=== PATIENT | male | born 1935 | race Caucasian/White ===

== ENCOUNTER 2018-01-07 16:10 | Inpatient (IN) | payer MEDICARE ==
[~2018-01-07] VITALS: Ht 182.9 cm; Wt 80.3 kg
[~2018-01-07 16:10] MED LIST: ALLOPURINOL100 MG PO; AMIODARONE HCL200 MG PO; ASPIRIN81 MG PO; ATORVASTATIN CA40 MG PO; BUMETANIDE1 MG PO; BUMETANIDE2 MG PO; CARVEDILOL3.125 MG PO; CLINDAMYCIN HC150 MG PO; CYPROHEPTADINE H4 MG PO; FERROUS SULFAT325 MG PO; FOLIC ACID1 MG PO; FUROSEMIDE40 MG PO; GABAPENTIN300 MG PO; GLIMEPIRIDE2 MG PO; HYDRALAZINE HCL25 MG PO; HYDRALAZINE HCL50 MG PO; LEVAQUIN250 MG PO; LEVOTHYROXINE50 MCG PO; LORATADINE10 MG PO; PANTOPRAZOLE SO40 MG PO; POTASSIUM CHLO10 ME1 PO; POTASSIUM CHLO20 ME1 PO; PREDNISONE20 MG PO; TRAZODONE HCL50 MG PO; ULTRAM 50MG50 MG PO; ULTRAM50 MG PO; WARFARIN SODIU2.5 MG PO; WARFARIN SODIUM1 MG PO
[2018-01-07] MEDS ORDERED: ASPIRIN 81 MG CHEW TAB PO ONE (16:45)
[2018-01-07 16:47] LABS: BASOPHILS # (AUTO) 0.1 (0.0-0.1); BASOPHILS % 0.8 % (0.0-1.0); EOSINOPHILS # (AUTO) 0.2 (0.0-0.4); EOSINOPHILS % 2.8 % (0.0-6.0); HEMATOCRIT 30.9 % (38.2-49.6); HEMOGLOBIN 9.6 g/dL (14.0-18.0); LYMPHOCYTES # (AUTO) 1.2 (1.0-3.2); MEAN CORPUSCULAR HEMOGLOBIN 27.5 pg (28-32); MEAN CORPUSCULAR HGB CONC 31.1 g/dL (31-35); MEAN CORPUSCULAR VOLUME 88.5 fL (81-99); MONOCYTES % 12.8 % (4.4-11.3); NEUTROPHILS % 67.3 % (38.7-80.0); PLATELET COUNT 252 x10e3/uL (140-360); RED BLOOD COUNT 3.49 x10e6/uL (4.3-5.7); RED CELL DISTRIBUTION WIDTH 16.6 % (11.7-14.4)
[2018-01-07 16:53] LABS: CLARITY,URINE CLEAR (CLEAR); COLOR,URINE YELLOW (YELLOW); LEUKOCYTE ESTERASE ,URINE NEGATIVE (NEGATIVE); NITRITE,URINE NEGATIVE (NEGATIVE); PROTEIN,URINE DIPSTICK NEGATIVE (NEGATIVE)
[2018-01-07 16:54] LABS: BILIRUBIN,URINE NEGATIVE (NEGATIVE); KETONES,URINE NEGATIVE (NEGATIVE); URINE UROBILINOGEN 0.2 mg/dL (0.2 - 1)
[2018-01-07 16:55] LABS: INR 3.07; PROTHROMBIN TIME 29.8 seconds (11.9-14.5)
[2018-01-07 16:56] LABS: PARTIAL THROMBOPLASTIN TIME 47.4 seconds (23.8-35.5)
[2018-01-07 17:00] LABS: EPITHELIAL CELLS,URINE RARE /LPF
[2018-01-07 17:01] LABS: RBC,URINE 0-5 /HPF (0-5); WBC,URINE (MAN) 0-5 /HPF (0-5)
[2018-01-07 17:02] LABS: ALBUMIN 2.8 g/dL (3.5-5.0); ALBUMIN/GLOBULIN RATIO 0.7 (0.8-2.0); ANION GAP 15.4 mmol/L (8-16); CALCIUM 8.5 mg/dL (8.4-10.2); CREATININE, SERUM 3.04 mg/dL (0.72-1.25); MAGNESIUM 2.1 MG/DL (1.3-2.1); POTASSIUM 4.4 mmol/L (3.5-5.1)
[2018-01-07 17:08] LABS: CREATINE KINASE MB 2.9 ng/mL (0-5.0)
--- NOTE | 2018-01-07 17:33 | Diagnostic Imaging Report ---
ANKLE 3+ VIEWS LEFT - 3 views HISTORY: Pain. Fall. On Coumadin. COMPARISON: None available. FINDINGS: Bones: Chronic fracture deformity of the medial malleolus with fusion of the tibia and fibula and near complete loss of joint space within the tibia and talus. Chronic flattening of the talar dome. Soft tissues: The soft tissues appear unremarkable. Vascular calcifications IMPRESSION: Chronic severe fracture deformity of the left ankle with deformity of the talus. No acute abnormalities. Signed by: Dr. José Mackenzie M.D. on 01/07/2018 5:29 PM
--- NOTE | 2018-01-07 17:33 | Diagnostic Imaging Report ---
KNEE LEFT THREE VIEWS - 3 views HISTORY: Pain. COMPARISON: None available. FINDINGS: Bones: No acute displaced fracture. Osseous alignment is within normal limits. Joints: Severe joint space narrowing the medial compartment. Mild degenerative changes in the lateral and patellofemoral compartments. Small suprapatellar joint effusion. Soft tissues: The soft tissues appear unremarkable. Severe vascular calcifications. IMPRESSION: Severe joint space narrowing in the medial compartment of the left knee. Signed by: Dr. José Mackenzie M.D. on 01/07/2018 5:30 PM
--- NOTE | 2018-01-07 17:35 | Diagnostic Imaging Report ---
EXAMINATION: CHEST SINGLE (PORTABLE) INDICATION: Pain. Fall. COMPARISON: Chest x-ray 06/26/2016. CT chest 06/26/2016. FINDINGS: AP view TUBES and LINES: Median sternotomy wires and aortic valve replacement is unchanged. LUNGS: Lungs are not well inflated. There are bibasilar atelectasis. There is perihilar interstitial opacities, consistent with interstitial edema. PLEURA: Trace left pleural effusion. HEART AND MEDIASTINUM: Cardiac size is moderately enlarged and unchanged. BONES AND SOFT TISSUES: No acute osseous lesion. Soft tissues are unremarkable. UPPER ABDOMEN: No free air under the diaphragm. IMPRESSION: Moderate cardiomegaly with early interstitial edema with trace of pleural effusion. Signed by: Dr. José Mackenzie M.D. on 01/07/2018 5:31 PM
[2018-01-07] MEDS ORDERED: ONDANSETRON HCL INJ 2 MG/ML VIAL IV PRN (18:15)
[2018-01-07 19:15] VITALS: BP 143/64
[2018-01-07] MEDS ORDERED: DOCUSATE SODIUM 100 MG CAP PO PRN (19:15)
[2018-01-07] MEDS ORDERED: DEXTROSE 50% SYRINGE 50 ML IV PRN (19:15)
[2018-01-07] MEDS: SODIUM CHLORIDE 0.9% 1000ML 1,000 ML IV SCH (19:30)
[2018-01-07 20:00] VITALS: BP 143/64
[2018-01-07] MEDS: INSULIN LISPRO 100 UNIT/1 ML 3ML VIAL SQ SCH (21:00)
[2018-01-07 21:23] LABS: CREATININE,URINE RANDOM 34.47 mg/dL (63-166)
[2018-01-07 21:24] LABS: TOTAL PROTEIN, URINE < 6.8 mg/dL (1-14)
--- NOTE | 2018-01-07 21:31 | Diagnostic Imaging Report ---
History:Fall, patient on Coumadin Comparison studies:06/25/2016 Technique: Axial images were obtained from the skull base to the vertex. Coronal and sagittal images reconstructed from the axial data. Intravenous contrast: None Findings: Scalp/skull: No abnormalities. Extra-axial spaces: No masses. No fluid collections. Brain sulci: Moderately prominent. Ventricles: Moderate compensatory dilatation. No hydrocephalus. Parenchyma: No masses, acute hemorrhage or acute or chronic cortical vascular insults. A few scattered hypodensities in the supratentorial white matter are nonspecific but most compatible with chronic small vessel ischemic changes. Chronic lacunar infarcts in the deep left frontal periventricular white matter and left subinsular white matter are unchanged. Sellar/suprasellar region: Partial empty sella. Craniocervical junction: Patent foramen magnum. No Chiari one malformation. Incidental findings: Atherosclerotic calcifications in the carotid siphons . Impression: No acute abnormalities. Chronic findings: 1. Moderate generalized volume loss. 2. Mild supratentorial small vessel ischemic changes. 3. Chronic deep left frontal and left subinsular lacunar infarcts. Findings discussed with Dr. Carr on 5:33 PM on 01/07/2018. Preliminary report was given by Neuroradiology fellow Dr. Aranda at 5:33 PM on 01/07/2018. I have reviewed the images and agree with the findings in the preliminary report. Signed by: Dr. Pat Bedolla M.D. on 01/07/2018 9:27 PM
[2018-01-07] MEDS: ATORVASTATIN 40 MG TAB PO SCH (21:46)
[2018-01-07] MEDS: HYDRALAZINE HCL 25 MG TAB PO SCH (21:46)
[2018-01-07] MEDS: TRAZODONE HCL 50 MG TAB PO SCH (21:46)
[2018-01-07] MEDS: HYDROCODONE/APAP 5MG-325MG TAB PO PRN (21:47)
[2018-01-07] MEDS: FUROSEMIDE INJ 10 MG/ML 4 ML VIAL IV SCH (23:27)
[2018-01-08] VITALS (7 sets, daily range): BP systolic 115–129; BP diastolic 54–68
[2018-01-08] MEDS ORDERED: MIRALAX17 GM PO (01:02)
[2018-01-08] MEDS: FUROSEMIDE INJ 10 MG/ML 4 ML VIAL IV SCH ×3 (06:01→21:34)
[2018-01-08] MEDS: MORPHINE SULFATE 2 MG/ML SYR IV PRN ×2 (06:07→14:15)
--- NOTE | 2018-01-08 06:20 | Consultation ---
DATE OF CONSULTATION: January 07, 2018 HISTORY OF PRESENT ILLNESS: Mr. Jamie Simmons is a pleasant 82-year-old white gentleman, very poor historian. Renal has been consulted for management of acute kidney injury. Patient denies any history of chronic kidney disease. Has history of underlying GI bleed. He is on anticoagulation. Congestive heart failure, history of prior urinary retention, history of atrial fibrillation, history of hypothyroidism, history of atherosclerotic cardiovascular disease. Currently on oxygen, appears mildly short of breath. LABS: Showed sodium 136, potassium 4.4, bicarbonate 27, creatinine 3.04 with hemoglobin 9.6, white count 7.4. ALLERGIES: NO APPARENT DRUG ALLERGIES. CURRENT MEDICATIONS: Insulin, trazodone, amiodarone, docusate, levothyroxine, aspirin, hydralazine, atorvastatin, carvedilol, pantoprazole, and Tylenol p.r.n. FAMILY HISTORY: Please see primary care physician's note. REVIEW OF SYSTEMS: Positive for dyspnea on exertion, he claims. No chest pains. No nausea, vomiting. No headache. PAST HISTORY: Also significant for type 2 diabetes. He follows up with Dr. Silverio. He is on anticoagulation i.e. warfarin. I reviewed his record from his last admission. His serum creatinine baseline was 1.8. He is currently now dealing with possible ankle fracture. Please see orthopedic notes. PHYSICAL EXAMINATION: GENERAL: Awake, alert, lying supine. VITAL SIGNS: Blood pressure 143/64, pulse rate 60, afebrile, respiratory rate 17. HEENT: Head and neck: Cornea clear. Arcus senilis noted. Neck veins distended. LUNGS: Bibasilar rales. HEART: S1, S2 audible. ABDOMEN: Soft, nontender. LOWER EXTREMITIES: 1+ ankle edema. IMPRESSION AND PLAN: 1. Congestive heart failure. 2. Chaaz-dr-yfedktm kidney failure. 3. Prior urinary retention. 4. Possible benign prostatic hypertrophy. Plan on inserting Vivar catheter. Will start Lasix 40 IV q.8. Send urine for protein creatinine ratio. Kidney ultrasound. Urinalysis. Etiology of acute kidney injury unclear. Has definite chronic renal insufficiency, stage 3. Multiple other comorbidities. Please see orders. Job#: [id number]
[2018-01-08 06:56] LABS: BASOPHILS # (AUTO) 0.1 (0.0-0.1); BASOPHILS % 0.9 % (0.0-1.0); EOSINOPHILS # (AUTO) 0.3 (0.0-0.4); EOSINOPHILS % 5.1 % (0.0-6.0); HEMATOCRIT 27.9 % (38.2-49.6); HEMOGLOBIN 8.7 g/dL (14.0-18.0); MEAN CORPUSCULAR HEMOGLOBIN 27.6 pg (28-32); MEAN CORPUSCULAR HGB CONC 31.2 g/dL (31-35); MEAN CORPUSCULAR VOLUME 88.6 fL (81-99); MONOCYTES # (AUTO) 0.8 (0.2-0.8); MONOCYTES % 14.1 % (4.4-11.3); NEUTROPHILS # (AUTO) 3.5 (2.1-6.9); NEUTROPHILS % 61.5 % (38.7-80.0); PLATELET COUNT 219 x10e3/uL (140-360); RED BLOOD COUNT 3.15 x10e6/uL (4.3-5.7); RED CELL DISTRIBUTION WIDTH 16.5 % (11.7-14.4)
[2018-01-08 07:22] LABS: ALBUMIN 2.5 g/dL (3.5-5.0); ALBUMIN/GLOBULIN RATIO 0.8 (0.8-2.0); ANION GAP 11.8 mmol/L (8-16); CALCIUM 8.1 mg/dL (8.4-10.2); CREATININE, SERUM 2.74 mg/dL (0.72-1.25); PHOSPHORUS 4.1 MG/DL (2.3-4.7); POTASSIUM 3.8 mmol/L (3.5-5.1)
[2018-01-08] MEDS: INSULIN LISPRO 100 UNIT/1 ML 3ML VIAL SQ SCH ×4 (07:30→21:00)
[2018-01-08 07:34] LABS: INR 2.94; PROTHROMBIN TIME 28.8 seconds (11.9-14.5)
[2018-01-08 07:46] LABS: THYROID STIMULATING HORMONE 9.771 uIU/mL (0.350-4.940)
[2018-01-08] MEDS ORDERED: LEVOTHYROXINE SODIUM 50 MCG TAB PO SCH (09:00)
[2018-01-08] MEDS: PANTOPRAZOLE SOD 40 MG TABEC PO SCH (09:37)
[2018-01-08] MEDS: SODIUM CHLORIDE 0.9% 1000ML 1,000 ML IV SCH ×2 (09:37→21:34)
[2018-01-08] MEDS: AMIODARONE HCL 200 MG TAB PO SCH (09:38)
[2018-01-08] MEDS: HYDRALAZINE HCL 25 MG TAB PO SCH ×3 (09:38→21:00)
[2018-01-08] MEDS: ASPIRIN 81 MG CHEW TAB PO SCH (09:38)
[2018-01-08] MEDS: CARVEDILOL 3.125 MG TAB PO SCH ×2 (09:38→16:48)
--- NOTE | 2018-01-08 09:47 | History and Physical ---
PATIENT LOCATION: ER room 2. PRESENTING COMPLAINT: Fall episode with laceration of legs on both sides today. HISTORY OF PRESENT ILLNESS: [id number] male who was admitted from ER with complaints of pain and laceration of legs and ankle status post fall at home. Patient was brought to ER by EMS from home. Patient is hard of hearing. He tells that he tried to walk at home when his was taking some food and his left ankle which is deformed from arthritis gave in. Patient fell and has some bruises about his both legs causing bleeding. Patient was on Coumadin for chronic atrial fibrillation. He denied any chest pain, shortness of breath, palpitation, dizziness prior to the fall. Patient did not have any change in mental status or seizure episode along with this fall episode. Patient head CT was done at the ER, was negative as per report from the ER physician. Patient only complains of pain in his both lower extremities, more on left ankle status post fall. He is afebrile. He denies any nausea, vomiting, abdominal pain at the present time. Patient also denies any passage of blood with stool or urine. REVIEW OF SYSTEMS: CONSTITUTIONAL: No fever, chills, rigor. ENT: No nasal congestion. No visual disturbance. Patient is hard of hearing. 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 On right ear, he hears but he is impaired. CARDIOVASCULAR: No chest pain, shortness of breath, palpitation. PULMONARY: No cough, no hemoptysis. GI: No abdominal pain, nausea, vomiting, passage of blood with stool or black stool. : No dysuria, no hematuria. MUSCULOSKELETAL, SKIN, LYMPHORETICULAR: Pain in left ankle status post fall and small bruises over both legs with scanty bleeding. Patient also has abrasion sam in his right shoulder without any bleeding. NEUROLOGICAL: No headache, loss of consciousness, or seizure. HISTORY OF PAST MEDICAL ILLNESS: Diabetes mellitus type 2, hypertension, hyperlipidemia, CHF, CKD stage 3, ischemic cardiomyopathy. Patient has CAD, no CABG, he had open heart surgery for aortic valve replacement. HISTORY OF PAST SURGERY: Right carotid endarterectomy, aortic valve replacement. ALLERGIES: NO KNOWN MEDICATION ALLERGY. HOME MEDICATIONS: As per med reconciliation sheet. Patient was on warfarin at home as per report. SOCIAL HISTORY: Patient lives at home with his . HABITS: No smoking, drinking, or substance abuse history. PHYSICAL EXAMINATION: VITAL SIGNS: Today, BP 102/71, pulse of 58, temp 97.8, respiration 18, SpO2 98% at room air. GENERAL: Alert, in mild to moderate distress due to pain from laceration and abrasion. Verbalizing normally. HEENT: NC, AT. No pallor, no icterus. Pupils equally reacting. NECK: No JVD, no carotid bruit, no lymphadenopathy, no thyromegaly. HEART: S1 and S2 regular. No murmur. LUNGS: Air entry equal on both sides. Occasional fine crackles present about bases. No rhonchi. ABDOMEN: Soft, nontender. No palpable mass. Bowel sounds active in all quadrants. EXTREMITIES: Trace ankle edema bilaterally. No cyanosis. Dystrophic nails on both feet. SKIN: Laceration and abrasion sam present on both legs and left ankle. Also abrasion linda present about right shoulder. NEUROLOGICAL: Muscle strength symmetric on both sides. Plantar flexor bilaterally. Speech normal. Hearing impaired. LAB DATA: CBC: WBC 7.43, hemoglobin 9.6, hematocrit 30.9, platelets 252,000, MCV 88, RDW 16.6, neutrophils 67, lymphocytes 16. PT 29.8, INR 3.07, PTT 47.4. Chemistry panel: Sodium 136, potassium 4.4, chloride 98, CO2 27, BUN 97, creatinine 3.04, glucose 105. Lactic acid 7.0, calcium 8.5, magnesium 2.1. Total bilirubin 0.6, AST 31, ALT 33, alk phos 65. CK 87, CK-MB 2.90, troponin 0.015. Total protein 6.6, albumin 2.8, globulin 3.8. Urinalysis negative for protein, glucose, ketone, RBC 0 to 5, WBC 0 to 5. RADIOLOGICAL DATA: Left knee x-ray, 3 views, severe joint space narrowing of the medial compartment to the left knee, no fracture noted. Severe vascular calcification. Small subpatellar joint effusion. X-ray chest, single view, moderate cardiomegaly with early interstitial edema with trace pleural effusion. CT head and brain without contrast, preliminary report negative for any acute change as per ER physician's report. Official report is pending. EKG, atrial fibrillation with ventricular rate of 56 beats per minute. Left ankle x-ray, chronic severe fracture deformity of the lesser ankle and deformity of the talus, no acute abnormalities. ASSESSMENT AND PLAN: 1. Left knee and ankle pain status post fall. Patient has chronic osteoarthritis affecting left knee along with left ankle chronic fracture. There is no acute fracture as per report from the radiology. Patient was evaluated by orthopedist in the past, was not determined any candidate for surgery at that time. If needed, would consult orthopedist, keep patient on pain control, mobilization as per orthopedist. 2. Mechanical fall. Patient denies any loss of consciousness. His CT head is negative for any acute change. Patient on warfarin for chronic anticoagulation. He is status post aortic valve replacement and also he has chronic atrial fibrillation. His INR is therapeutic now. Can continue the same dose of Coumadin. Patient has scanty bleeding from the laceration site. Would monitor for bleeding. 3. Vvvmc-dt-utaloyi renal insufficiency. Patient was on diuretics likely at home. Would monitor renal function. Consultation with nephrology, Dr. Groves is requested from emergency room. Would follow his recommendation. Patient can be hydrated at low rate fluids for now as per nephrology recommendation. 4. Hypertension. Continue regular medication. 5. Hyperlipidemia. Continue regular medication. 6. Type 2 diabetes mellitus. Continue patient on his regular medication along with sliding scale insulin. 7. Chronic anemia. Would monitor hemoglobin and hematocrit while in hospital. 8. Chronic anticoagulation. Would monitor PT/INR daily while patient is in hospital. DISCHARGE PLAN: Depends upon patient's hospital course and recommendation by partner manager and orthopedist. Job#: [id number]
--- NOTE | 2018-01-08 10:26 | Consultation ---
DATE OF CONSULTATION: January 07, 2018 REASON FOR CONSULTATION: Fall, syncope, CAD, CHF, and PAD. CONSULTING PHYSICIAN: Dr. Stauffer HPI: This is an 82-year-old male that presented status post fall. According to the patient, he had a fall at home, was unable to get up that he had to drag himself on the floor to get to the phone. He sustained multiple skin tears. He had an x-ray done that showed chronic severe fracture and deformity of the left ankle. He has an extensive cardiac history of CAD and aortic valve replacement, chronic AFib and has been on Coumadin for anticoagulation. He denied any chest pain, any palpitation, any dizziness, any diaphoresis or headache. Troponin was negative. EKG with AFib, irregularly irregular. PAST MEDICAL HISTORY: Diastolic CHF, AFib, CAD, diabetes, hypothyroidism, hypertension, hyperlipidemia, diabetic neuropathy, CKD, bilateral lower extremity cellulitis, UTI, PAD, GI bleed, anemia, hard of hearing, and BPH. PAST SURGICAL HISTORY: CABG, aortic valve replacement, and right carotid endarterectomy. SOCIAL HISTORY: He quit smoking. He lives at home. FAMILY HISTORY: Positive for hypertension. MEDICATIONS: See med list. ALLERGIES: HE IS NOT ALLERGIC TO ANY MEDICATION. REVIEW OF THE SYSTEMS: Negative except those mentioned above. He is status post fall with multiple skin tears. PHYSICAL EXAMINATION: VITAL SIGNS: Temperature 97, heart rate 58, blood pressure 120/58, respiration 20, oxygen saturation 96% on room air. GENERAL: He is awake, alert, and oriented x3. HEENT: Mucous membranes moist. NECK: Supple. LUNGS: Bilaterally with decreased breath sounds. CARDIOVASCULAR: Irregularly irregular. ABDOMEN: Soft. NEUROLOGICAL: He is able to move all extremities. EXTREMITIES: Bilateral lower extremities with no edema. SKIN: He has multiple bruises and redness and skin tears all over his body. LABS: Sodium 136, potassium 4.4, chloride 98, CO2 27, BUN 97, creatinine 3.04, glucose 105. White blood cells 7.43, hemoglobin 9.6, hematocrit 30.9, platelet 252,000. PT 29.8, PTT 47.4, INR 2.94. IMPRESSION: 1. Status post fall. 2. Possible syncope. 3. Atrial fibrillation. 4. Coronary artery disease with aortic valve replacement. 5. Renal insufficiency. 6. Hypothyroidism. 7. Diabetes. 8. Hypertension. 9. Chronic severe fracture and deformity on the left ankle. ASSESSMENT AND PLAN 1. Will go ahead and get an echocardiogram to reassess the LV and the valve function. His heart rate is controlled and he has been anticoagulated. 2. INR is 2.94 today. 3. Ortho has been consulted for possible surgical intervention. We will hold Coumadin if there is going to be any surgical intervention and use Lovenox. Will go ahead and get bilateral carotid Doppler to rule out any occlusion, and continue his home medications. Further cardiac workup pending clinical course. Thank you for this consultation. Dictated by: Lynn Razo NP Job#: [id number]
--- NOTE | 2018-01-08 15:00 | Consultation ---
DATE OF CONSULTATION: January 08, 2018 CHIEF COMPLAINT: Left ankle pain. HISTORY OF PRESENT ILLNESS: This patient is an 82-year-old male who recently suffered a fall at home. He complains of new-onset left ankle pain. He is a poor historian and has difficulty giving a detailed account. He states that his left ankle gave out on him and that he fell. He states he was unable to get up and bear weight. He states he had to drag himself to the phone, and sustained some scrapes on his arms and legs. He reportedly had a fracture of the left ankle many years ago. He states he has had instability and buckling in the ankle ever since then. He states that he has seen orthopedics in the past, and he was told there was nothing that could be done. He is hard of hearing and has difficulty answering questions as a result. PAST MEDICAL HISTORY: See H and P. SOCIAL HISTORY: The patient states he quit smoking many years ago. He denies drinking. He lives at home with his . He states that he ambulates with assistance, and that he sometimes uses an orthotic, but even then his ankle buckle inside the orthotic. PHYSICAL EXAMINATION GENERAL: This is a medically frail appearing gentleman who is in no apparent distress. He is awake, alert and oriented appropriately. He is hard of hearing and thus has difficulty following and answering questions. EXTREMITIES: Gross inspection of his left ankle shows chronic varus deformity of the ankle. There is trace swelling. There are multiple scrapes and lacerations on the left lower extremity without bleeding. There is tenderness along the lateral aspect of the ankle. There is no tenderness on the medial aspect over the medial malleolus. He has diminished, but not particularly uncomfortable range of motion in the ankle. Pedal pulses faintly palpable. The foot is grossly sensate. I cannot check capillary refill because of the condition of his nails. IMAGING: X-rays of the left ankle taken yesterday show a chronic fracture deformity with varus angulation. 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 There are x-rays from November of 2015 and October of 2015, which show similar findings of the left ankle. 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 The findings were discussed with the patient. He has been told in the past that there is not anything that can be done surgical. He reportedly uses an orthotic to help with ambulation. He could potentially consider an ankle fusion if his health could be optimized. I am not entirely sure he would be a good candidate for this. This would not be something he would want to do here. In the periphery, he would need to go [facility] and [facility] a dedicated foot and ankle specialist. For now I just recommend pain control. He could potentially get up with therapy and weightbear as tolerated. I recommended the patient that he have his family bring his orthotic up to the hospital to use. Thank you for the consultation. DICTATED BY MITZY OLIVARES PA-C Job#: [id number] KIKI
[2018-01-08] MEDS: WARFARIN SOD 2 MG TAB PO SCH (16:48)
[2018-01-08] MEDS: ATORVASTATIN 40 MG TAB PO SCH (21:34)
[2018-01-08] MEDS: TRAZODONE HCL 50 MG TAB PO SCH (21:34)
[2018-01-09] VITALS (7 sets, daily range): BP systolic 118–134; BP diastolic 58–63
[2018-01-09] MEDS: FUROSEMIDE INJ 10 MG/ML 4 ML VIAL IV SCH ×3 (05:38→21:18)
[2018-01-09] MEDS: LEVOTHYROXINE SODIUM 75 MCG TAB PO SCH (05:38)
[2018-01-09 06:28] LABS: BASOPHILS # (AUTO) 0.1 (0.0-0.1); BASOPHILS % 0.8 % (0.0-1.0); EOSINOPHILS # (AUTO) 0.2 (0.0-0.4); EOSINOPHILS % 2.3 % (0.0-6.0); HEMATOCRIT 28.6 % (38.2-49.6); HEMOGLOBIN 8.6 g/dL (14.0-18.0); LYMPHOCYTES # (AUTO) 1.1 (1.0-3.2); LYMPHOCYTES % 15.9 % (18.0-39.1); MEAN CORPUSCULAR HEMOGLOBIN 26.8 pg (28-32); MEAN CORPUSCULAR HGB CONC 30.1 g/dL (31-35); MEAN CORPUSCULAR VOLUME 89.1 fL (81-99); MONOCYTES # (AUTO) 0.8 (0.2-0.8); MONOCYTES % 12.1 % (4.4-11.3); NEUTROPHILS # (AUTO) 4.6 (2.1-6.9); NEUTROPHILS % 68.6 % (38.7-80.0); PLATELET COUNT 228 x10e3/uL (140-360); RED BLOOD COUNT 3.21 x10e6/uL (4.3-5.7); RED CELL DISTRIBUTION WIDTH 16.5 % (11.7-14.4)
[2018-01-09 06:47] LABS: ANION GAP 12.1 mmol/L (8-16); CREATININE, SERUM 2.41 mg/dL (0.72-1.25); POTASSIUM 4.1 mmol/L (3.5-5.1)
[2018-01-09 07:16] LABS: FERRITIN 51.75 ng/mL (21.81-274.66)
[2018-01-09] MEDS: INSULIN LISPRO 100 UNIT/1 ML 3ML VIAL SQ SCH ×4 (07:30→21:00)
[2018-01-09] MEDS: PANTOPRAZOLE SOD 40 MG TABEC PO SCH (09:44)
[2018-01-09] MEDS: HYDRALAZINE HCL 25 MG TAB PO SCH ×3 (09:45→21:00)
[2018-01-09] MEDS: ASPIRIN 81 MG CHEW TAB PO SCH (09:45)
[2018-01-09] MEDS: AMIODARONE HCL 200 MG TAB PO SCH (09:45)
[2018-01-09] MEDS: CARVEDILOL 3.125 MG TAB PO SCH ×2 (09:46→17:14)
[2018-01-09 10:04] LABS: INR 2.69; PROTHROMBIN TIME 26.9 seconds (11.9-14.5)
--- NOTE | 2018-01-09 10:31 | Consultation ---
DATE OF CONSULTATION: January 09, 2018 PULMONARY CONSULTATION Patient of Dr. Manley, Dr. Danielson and Dr. Silverio. A charming but unfortunate 82-year-old gentleman admitted with increasing shortness of breath of 2 days duration according to the record. Apparently, he was a direct admission. He has a history of congestive heart failure, ischemic cardiomyopathy, aortic valve replacement, chronic kidney disease, chronic atrial fibrillation, hypothyroidism, diabetes, peripheral vascular disease. He is a nonsmoker. 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 Had carotid surgery, as well as aortic valve replacement. Been on Coumadin in the past. History of severe peripheral neuropathy and peripheral vascular disease. Lives with his . HOME MEDICATIONS: Include Bumex, Lasix, MiraLAX, amiodarone, aspirin, Lipitor, Coreg, Apresoline, Levoxyl, Protonix, trazodone, and warfarin. PHYSICAL EXAMINATION GENERAL: This is a frail white male somewhat a poor historian. VITALS: Temperature 96.5, pulse 67, respirations 24, blood pressure 123/58. He is on nasal oxygen. HEENT: Head: There is some temporal wasting. LUNGS: Bilateral rales, right greater than left. HEART: Irregular rhythm. ABDOMEN: Nontender. EXTREMITIES: There is arterial vascular insufficiency changes of the skin. Absence of hair. IMPRESSION 1. Severe congestive heart failure 2. Deformed ankles, especially the left with a history of remote fracture and nonunion. The patient does represent increased certain . Thank you for this kind referral. Job#: [id number] KIKI
--- NOTE | 2018-01-09 11:47 | Diagnostic Imaging Report ---
PROCEDURE: A single AP view of the chest. COMPARISON: Patients [facility], , CHEST SINGLE (PORTABLE), 01/07/2018, 16:57. INDICATIONS: CHF FINDINGS: Lines/tubes: None. Lungs: Bilateral pulmonary venous congestion and interstitial edema. Pleura: There is no pneumothorax. Interval increase in left pleural effusion. Development of small right pleural effusion. Heart and mediastinum: The cardiac silhouette remains moderately enlarged. Median sternotomy wires. Bones: No acute bony abnormality. IMPRESSION: 1. mild interval worsening of bilateral pulmonary congestion and interstitial edema. 2. Mild interval increase in volume of small left pleural effusion. New small right pleural effusion. Electronically approved by: Jose Shelby M.D. on 01/09/2018 at 11:50
[2018-01-09 11:48] LABS: ABG HCO3 27 mmol/L (23-28); ABG PCO2 54 mmHg (41-51); ABG PH 7.31 (7.31-7.41); ABG PO2 66 mmHg (80-105)
[2018-01-09] MEDS: HYDROCODONE/APAP 5MG-325MG TAB PO PRN (12:47)
[2018-01-09] MEDS: BUDESONIDE 0.5MG/2 ML NEB INH SCH ×2 (13:15→17:33)
[2018-01-09] MEDS: IPRATROPIUM BROMIDE 0.02% 2.5 ML NEB NEB SCH ×2 (13:15→19:30)
[2018-01-09] MEDS: WARFARIN SOD 2 MG TAB PO SCH (17:14)
--- NOTE | 2018-01-09 17:43 | Diagnostic Imaging Report ---
EXAM: Renal Ultrasound INDICATION: Acute kidney injury. COMPARISON: None TECHNIQUE: Transverse and longitudinal images of the kidneys and bladder were obtained. FINDINGS: Right Kidney: Length: 10.1 cm Appearance: Normal echogenicity. Collecting system: No hydronephrosis Stones: None Cyst/Mass: None Left Kidney: Length: 9.6 cm Appearance: Normal echogenicity. Collecting system: No hydronephrosis Stones: None Cyst/Mass: None Bladder: Decompressed which precludes evaluation. IMPRESSION: Normal renal ultrasound exam. Signed by: Dr. Jose Shelby M.D. on 01/09/2018 5:40 PM
[2018-01-09] MEDS: TRAZODONE HCL 50 MG TAB PO SCH (21:17)
[2018-01-09] MEDS: ATORVASTATIN 40 MG TAB PO SCH (21:17)
[2018-01-10] VITALS (7 sets, daily range): BP systolic 115–137; BP diastolic 57–70
[2018-01-10] MEDS: IPRATROPIUM BROMIDE 0.02% 2.5 ML NEB NEB SCH ×4 (02:00→19:00)
[2018-01-10] MEDS: FUROSEMIDE INJ 10 MG/ML 4 ML VIAL IV SCH ×3 (05:38→22:15)
[2018-01-10] MEDS: LEVOTHYROXINE SODIUM 75 MCG TAB PO SCH (05:38)
[2018-01-10 06:16] LABS: BASOPHILS % 0.3 % (0.0-1.0); EOSINOPHILS # (AUTO) 0.1 (0.0-0.4); EOSINOPHILS % 1.1 % (0.0-6.0); HEMOGLOBIN 9.1 g/dL (14.0-18.0); LYMPHOCYTES # (AUTO) 0.9 (1.0-3.2); LYMPHOCYTES % 12.8 % (18.0-39.1); MEAN CORPUSCULAR HEMOGLOBIN 27.5 pg (28-32); MEAN CORPUSCULAR HGB CONC 30.3 g/dL (31-35); MEAN CORPUSCULAR VOLUME 90.6 fL (81-99); MONOCYTES # (AUTO) 0.8 (0.2-0.8); MONOCYTES % 10.6 % (4.4-11.3); NEUTROPHILS # (AUTO) 5.5 (2.1-6.9); NEUTROPHILS % 74.9 % (38.7-80.0); PLATELET COUNT 235 x10e3/uL (140-360); RED BLOOD COUNT 3.31 x10e6/uL (4.3-5.7); RED CELL DISTRIBUTION WIDTH 16.8 % (11.7-14.4)
[2018-01-10 06:46] LABS: ALBUMIN 2.4 g/dL (3.5-5.0); ALBUMIN/GLOBULIN RATIO 0.7 (0.8-2.0); ANION GAP 12.2 mmol/L (8-16); CALCIUM 8.1 mg/dL (8.4-10.2); CREATININE, SERUM 2.52 mg/dL (0.72-1.25); POTASSIUM 4.2 mmol/L (3.5-5.1)
[2018-01-10] MEDS: BUDESONIDE 0.5MG/2 ML NEB INH SCH ×2 (07:00→19:00)
[2018-01-10] MEDS: INSULIN LISPRO 100 UNIT/1 ML 3ML VIAL SQ SCH ×4 (07:30→20:42)
[2018-01-10] MEDS: PANTOPRAZOLE SOD 40 MG TABEC PO SCH (09:14)
[2018-01-10] MEDS: HYDRALAZINE HCL 25 MG TAB PO SCH ×3 (09:15→20:42)
[2018-01-10] MEDS: CARVEDILOL 3.125 MG TAB PO SCH ×2 (09:15→17:17)
[2018-01-10] MEDS: ASPIRIN 81 MG CHEW TAB PO SCH (09:15)
[2018-01-10] MEDS: AMIODARONE HCL 200 MG TAB PO SCH (09:15)
[2018-01-10] MEDS: MUPIROCIN 2% OINT 22 GM TUBE TOP SCH (12:24)
[2018-01-10] MEDS: WARFARIN SOD 2 MG TAB PO SCH (17:18)
[2018-01-10] MEDS: IRON SUCROSE 100 MG in SODIUM CHLORIDE 0.9% 100 ML 100 ML IV SCH (18:07)
[2018-01-10] MEDS: TRAZODONE HCL 50 MG TAB PO SCH (20:42)
[2018-01-10] MEDS: ATORVASTATIN 40 MG TAB PO SCH (20:43)
[2018-01-11] VITALS (7 sets, daily range): BP systolic 121–143; BP diastolic 52–66
[2018-01-11] MEDS: FUROSEMIDE INJ 10 MG/ML 4 ML VIAL IV SCH ×3 (05:09→21:38)
[2018-01-11] MEDS: LEVOTHYROXINE SODIUM 75 MCG TAB PO SCH (05:10)
[2018-01-11 06:35] LABS: ANION GAP 12.9 mmol/L (8-16); CALCIUM 8.2 mg/dL (8.4-10.2); CREATININE, SERUM 2.39 mg/dL (0.72-1.25); POTASSIUM 3.9 mmol/L (3.5-5.1)
[2018-01-11] MEDS: IPRATROPIUM BROMIDE 0.02% 2.5 ML NEB NEB SCH ×4 (07:00→19:53)
[2018-01-11] MEDS: BUDESONIDE 0.5MG/2 ML NEB INH SCH ×2 (07:00→19:53)
[2018-01-11] MEDS: INSULIN LISPRO 100 UNIT/1 ML 3ML VIAL SQ SCH ×4 (07:30→21:00)
[2018-01-11] MEDS: PANTOPRAZOLE SOD 40 MG TABEC PO SCH (07:57)
[2018-01-11] MEDS: HYDRALAZINE HCL 25 MG TAB PO SCH ×3 (09:00→21:38)
[2018-01-11] MEDS: AMIODARONE HCL 200 MG TAB PO SCH (09:10)
[2018-01-11] MEDS: MUPIROCIN 2% OINT 22 GM TUBE TOP SCH (09:10)
[2018-01-11] MEDS: ASPIRIN 81 MG CHEW TAB PO SCH (09:10)
[2018-01-11] MEDS: CARVEDILOL 3.125 MG TAB PO SCH ×2 (09:10→17:52)
[2018-01-11] MEDS: IRON SUCROSE 100 MG in SODIUM CHLORIDE 0.9% 100 ML 100 ML IV SCH (18:24)
[2018-01-11] MEDS: ACETAMINOPHEN 325 MG TAB PO PRN (18:24)
[2018-01-11] MEDS: TRAZODONE HCL 50 MG TAB PO SCH (21:38)
[2018-01-11] MEDS: ATORVASTATIN 40 MG TAB PO SCH (21:38)
[2018-01-12] VITALS (7 sets, daily range): BP systolic 125–154; BP diastolic 59–74
[2018-01-12] MEDS: ACETAMINOPHEN 325 MG TAB PO PRN
[2018-01-12] MEDS: IPRATROPIUM BROMIDE 0.02% 2.5 ML NEB NEB SCH ×4 (02:22→19:35)
[2018-01-12] MEDS: HYDROCODONE/APAP 5MG-325MG TAB PO PRN (02:40)
[2018-01-12] MEDS: LEVOTHYROXINE SODIUM 75 MCG TAB PO SCH (05:36)
[2018-01-12] MEDS: FUROSEMIDE INJ 10 MG/ML 4 ML VIAL IV SCH ×3 (05:36→21:58)
[2018-01-12 06:22] LABS: BASOPHILS % 0.3 % (0.0-1.0); EOSINOPHILS # (AUTO) 0.1 (0.0-0.4); EOSINOPHILS % 1.1 % (0.0-6.0); HEMATOCRIT 28.7 % (38.2-49.6); HEMOGLOBIN 8.7 g/dL (14.0-18.0); LYMPHOCYTES # (AUTO) 1.1 (1.0-3.2); LYMPHOCYTES % 11.8 % (18.0-39.1); MEAN CORPUSCULAR HEMOGLOBIN 26.9 pg (28-32); MEAN CORPUSCULAR HGB CONC 30.3 g/dL (31-35); MEAN CORPUSCULAR VOLUME 88.6 fL (81-99); MONOCYTES # (AUTO) 0.9 (0.2-0.8); NEUTROPHILS # (AUTO) 6.8 (2.1-6.9); NEUTROPHILS % 76.2 % (38.7-80.0); PLATELET COUNT 234 x10e3/uL (140-360); RED BLOOD COUNT 3.24 x10e6/uL (4.3-5.7); RED CELL DISTRIBUTION WIDTH 16.5 % (11.7-14.4)
[2018-01-12 06:38] LABS: INR 3.09; PROTHROMBIN TIME 29.9 seconds (11.9-14.5)
[2018-01-12 06:55] LABS: ALBUMIN 2.4 g/dL (3.5-5.0); ALBUMIN/GLOBULIN RATIO 0.7 (0.8-2.0); CALCIUM 8.3 mg/dL (8.4-10.2); CREATININE, SERUM 2.28 mg/dL (0.72-1.25)
[2018-01-12] MEDS: INSULIN LISPRO 100 UNIT/1 ML 3ML VIAL SQ SCH ×4 (07:30→21:00)
[2018-01-12] MEDS: BUDESONIDE 0.5MG/2 ML NEB INH SCH ×2 (07:35→19:35)
[2018-01-12] MEDS: PANTOPRAZOLE SOD 40 MG TABEC PO SCH (07:45)
[2018-01-12] MEDS: HYDRALAZINE HCL 25 MG TAB PO SCH ×3 (09:00→21:00)
[2018-01-12] MEDS: ASPIRIN 81 MG CHEW TAB PO SCH (09:00)
[2018-01-12] MEDS: CARVEDILOL 3.125 MG TAB PO SCH ×2 (09:28→17:32)
[2018-01-12] MEDS: AMIODARONE HCL 200 MG TAB PO SCH (09:28)
[2018-01-12] MEDS: MUPIROCIN 2% OINT 22 GM TUBE TOP SCH (09:28)
--- NOTE | 2018-01-12 10:13 | Diagnostic Imaging Report ---
PROCEDURE:CHEST 2 VIEWS TECHNIQUE:PA and lateral chest INDICATION:Congestive heart failure COMPARISON:Patients [facility], DX, CHEST SINGLE (PORTABLE), 01/09/2018, 11:28. FINDINGS: See conclusion. CONCLUSION: 1. Stable small pleural effusions. 2. Low lung volumes with stable pulmonary edema and bibasilar atelectasis. 3. Stable cardiomegaly with postoperative sequela of sternotomy and aortic valve replacement. 4. Intact skeleton. Dictated by: Tavo Mercado M.D. on 01/12/2018 at 10:17 Electronically approved by: Tavo Mercado M.D. on 01/12/2018 at 10:17
[2018-01-12] MEDS: IRON SUCROSE 100 MG in SODIUM CHLORIDE 0.9% 100 ML 100 ML IV SCH (18:07)
[2018-01-12] MEDS: TRAZODONE HCL 50 MG TAB PO SCH (21:00)
[2018-01-12] MEDS: ATORVASTATIN 40 MG TAB PO SCH (21:00)
[2018-01-13] VITALS: BP 136/66
[2018-01-13] MEDS: IPRATROPIUM BROMIDE 0.02% 2.5 ML NEB NEB SCH ×4 (01:02→19:20)
[2018-01-13 04:00] VITALS: BP 137/68
[2018-01-13] MEDS: FUROSEMIDE INJ 10 MG/ML 4 ML VIAL IV SCH ×2 (05:36→13:36)
[2018-01-13] MEDS: LEVOTHYROXINE SODIUM 75 MCG TAB PO SCH (05:37)
[2018-01-13 06:10] LABS: INR 2.54; PROTHROMBIN TIME 25.7 seconds (11.9-14.5)
[2018-01-13 06:26] LABS: ANION GAP 12.4 mmol/L (8-16); CALCIUM 8.6 mg/dL (8.4-10.2); CREATININE, SERUM 2.46 mg/dL (0.72-1.25); POTASSIUM 4.4 mmol/L (3.5-5.1)
[2018-01-13] MEDS: BUDESONIDE 0.5MG/2 ML NEB INH SCH ×2 (07:25→19:20)
[2018-01-13] MEDS: INSULIN LISPRO 100 UNIT/1 ML 3ML VIAL SQ SCH ×4 (07:30→21:00)
[2018-01-13 08:18] VITALS: BP 122/68
[2018-01-13] MEDS: PANTOPRAZOLE SOD 40 MG TABEC PO SCH (09:20)
[2018-01-13] MEDS: HYDRALAZINE HCL 25 MG TAB PO SCH ×3 (10:07→21:00)
[2018-01-13] MEDS: AMIODARONE HCL 200 MG TAB PO SCH (10:07)
[2018-01-13] MEDS: MUPIROCIN 2% OINT 22 GM TUBE TOP SCH (10:08)
[2018-01-13] MEDS: CARVEDILOL 3.125 MG TAB PO SCH ×2 (10:08→16:20)
[2018-01-13 12:03] VITALS: BP 129/70
[2018-01-13] MEDS: HYDROCODONE/APAP 5MG-325MG TAB PO PRN (16:00)
[2018-01-13] MEDS: WARFARIN SOD 1 MG TAB PO SCH (16:21)
[2018-01-13 16:24] VITALS: BP 121/65
[2018-01-13] MEDS: ACETAMINOPHEN 325 MG TAB PO PRN ×2 (17:20→21:19)
[2018-01-13] MEDS: FUROSEMIDE 40 MG TAB PO SCH (18:52)
[2018-01-13 20:00] VITALS: BP 151/60
[2018-01-13] MEDS: ATORVASTATIN 40 MG TAB PO SCH (21:00)
[2018-01-13] MEDS: TRAZODONE HCL 50 MG TAB PO SCH (21:00)
--- NOTE | 2018-01-13 23:34 | Diagnostic Imaging Report ---
CHEST SINGLE (PORTABLE), 01/13/2018 10:45 PM Technique: CHEST SINGLE (PORTABLE) Comparison: 01/12/2018 Clinical history: Shortness of breath Findings: See Impression Impression: 1. Stable enlarged cardiomediastinal silhouette status post sternotomy and transcatheter aortic valve implantation. 2. Persistent diffuse opacities, likely a combination of edema, bibasilar atelectasis and pleural effusions. Signed by: Dr Nayla Hobson MD on 01/13/2018 11:31 PM
[2018-01-14] VITALS (78 sets, daily range): BP systolic 93–137; BP diastolic 50–100
[2018-01-14] MEDS: IPRATROPIUM BROMIDE 0.02% 2.5 ML NEB NEB SCH ×4 (01:05→18:52)
[2018-01-14 02:10] LABS: ABG HCO3 28 mmol/L (23-28); ABG PCO2 60 mmHg (41-51); ABG PH 7.28 (7.31-7.41); ABG PO2 69 mmHg (80-105)
[2018-01-14 06:17] LABS: INR 2.33
[2018-01-14 06:24] LABS: BASOPHILS % 0.3 % (0.0-1.0); EOSINOPHILS # (AUTO) 0.1 (0.0-0.4); EOSINOPHILS % 1.1 % (0.0-6.0); HEMATOCRIT 32.3 % (38.2-49.6); HEMOGLOBIN 9.3 g/dL (14.0-18.0); LYMPHOCYTES # (AUTO) 0.7 (1.0-3.2); LYMPHOCYTES % 8.2 % (18.0-39.1); MEAN CORPUSCULAR HEMOGLOBIN 27.3 pg (28-32); MEAN CORPUSCULAR HGB CONC 28.8 g/dL (31-35); MEAN CORPUSCULAR VOLUME 94.7 fL (81-99); MONOCYTES # (AUTO) 0.7 (0.2-0.8); MONOCYTES % 8.1 % (4.4-11.3); NEUTROPHILS # (AUTO) 7.3 (2.1-6.9); PLATELET COUNT 175 x10e3/uL (140-360); RED BLOOD COUNT 3.41 x10e6/uL (4.3-5.7); RED CELL DISTRIBUTION WIDTH 16.9 % (11.7-14.4)
[2018-01-14 06:28] LABS: ABG HCO3 28 mmol/L (23-28); ABG PCO2 49 mmHg (41-51); ABG PH 7.37 (7.31-7.41); ABG PO2 141 mmHg (80-105)
[2018-01-14 06:30] LABS: ALBUMIN 2.5 g/dL (3.5-5.0); ALBUMIN/GLOBULIN RATIO 0.7 (0.8-2.0); ANION GAP 14.6 mmol/L (8-16); CALCIUM 8.5 mg/dL (8.4-10.2); CREATININE, SERUM 2.58 mg/dL (0.72-1.25); POTASSIUM 4.6 mmol/L (3.5-5.1)
[2018-01-14] MEDS: INSULIN LISPRO 100 UNIT/1 ML 3ML VIAL SQ SCH ×4 (07:30→20:41)
[2018-01-14] MEDS: BUDESONIDE 0.5MG/2 ML NEB INH SCH ×2 (07:39→18:52)
[2018-01-14] MEDS: FUROSEMIDE 40 MG TAB PO SCH (08:04)
[2018-01-14] MEDS: LEVOTHYROXINE SODIUM 75 MCG TAB PO SCH (08:04)
[2018-01-14] MEDS: PANTOPRAZOLE SOD 40 MG TABEC PO SCH (08:04)
[2018-01-14] MEDS: HYDROCODONE/APAP 5MG-325MG TAB PO PRN (08:55)
[2018-01-14] MEDS: HYDRALAZINE HCL 25 MG TAB PO SCH ×3 (09:00→21:00)
[2018-01-14] MEDS: MUPIROCIN 2% OINT 22 GM TUBE TOP SCH (09:00)
[2018-01-14] MEDS: CARVEDILOL 3.125 MG TAB PO SCH ×2 (10:49→18:36)
[2018-01-14] MEDS: AMIODARONE HCL 200 MG TAB PO SCH (10:49)
[2018-01-14 11:36] LABS: ANISOCYTOSIS SLIGHT; HYPOCHROMASIA SLIGHT; PLATELET ESTIMATE ADEQUATE; PLATELET MORPHOLOGY COMMENT NORMAL; RBC MORPHOLOGY COMMENT NORMAL
[2018-01-14] MEDS ORDERED: FUROSEMIDE INJ 10 MG/ML 4 ML VIAL IV ONE (12:30)
--- NOTE | 2018-01-14 14:05 | Diagnostic Imaging Report ---
EXAM: US CHEST (INCL MEDIASTINUM) DATE: 01/14/2018 12:00 AM INDICATION: \S\pleural effusion COMPARISON: None FINDINGS: Small bilateral pleural effusions present. IMPRESSION: As above. Signed by: Dr. Israel Miller MD on 01/14/2018 2:01 PM
[2018-01-14] MEDS: WARFARIN SOD 1 MG TAB PO SCH (18:36)
[2018-01-14] MEDS: FUROSEMIDE INJ 10 MG/ML 2 ML VIAL IV SCH (18:36)
[2018-01-14] MEDS: TRAZODONE HCL 50 MG TAB PO SCH (21:00)
[2018-01-14] MEDS: ATORVASTATIN 40 MG TAB PO SCH (21:00)
[2018-01-15] VITALS (75 sets, daily range): BP systolic 73–126; BP diastolic 44–117
[2018-01-15] MEDS: HYDROCODONE/APAP 5MG-325MG TAB PO PRN (00:10)
[2018-01-15] MEDS: IPRATROPIUM BROMIDE 0.02% 2.5 ML NEB NEB SCH ×4 (02:30→19:25)
[2018-01-15] MEDS ORDERED: HYDROCODONE/APAP 5MG-325MG TAB PO PRN (03:15)
[2018-01-15] MEDS: LEVOTHYROXINE SODIUM 75 MCG TAB PO SCH (06:06)
[2018-01-15] MEDS: FUROSEMIDE INJ 10 MG/ML 2 ML VIAL IV SCH ×2 (06:13→18:05)
[2018-01-15 06:42] LABS: INR 2.3; PROTHROMBIN TIME 23.8 seconds (11.9-14.5)
[2018-01-15 06:56] LABS: ALBUMIN 2.5 g/dL (3.5-5.0); ALBUMIN/GLOBULIN RATIO 0.7 (0.8-2.0); ANION GAP 14.5 mmol/L (8-16); CALCIUM 8.2 mg/dL (8.4-10.2); CREATININE, SERUM 2.82 mg/dL (0.72-1.25); POTASSIUM 4.5 mmol/L (3.5-5.1)
[2018-01-15] MEDS: INSULIN LISPRO 100 UNIT/1 ML 3ML VIAL SQ SCH ×4 (07:30→21:00)
[2018-01-15] MEDS: BUDESONIDE 0.5MG/2 ML NEB INH SCH ×2 (07:42→19:25)
[2018-01-15] MEDS: MUPIROCIN 2% OINT 22 GM TUBE TOP SCH (10:06)
[2018-01-15] MEDS: AMIODARONE HCL 200 MG TAB PO SCH (10:06)
[2018-01-15] MEDS: CARVEDILOL 3.125 MG TAB PO SCH ×2 (10:06→17:00)
[2018-01-15] MEDS: HYDRALAZINE HCL 25 MG TAB PO SCH ×3 (10:06→21:12)
[2018-01-15] MEDS: PANTOPRAZOLE SOD 40 MG TABEC PO SCH (10:07)
--- NOTE | 2018-01-15 13:57 | Progress Note ---
DATE: January 15, 2018 NEPHROLOGY FOLLOWUP SUBJECTIVE: Remains on BiPAP. Chest x-ray is showing lot of infiltrates/fluid, net even for yesterday on 40 mg b.i.d. Lasix IV. PHYSICAL EXAMINATION GENERAL: Appears to be in some respiratory distress, on BiPAP. VITAL SIGNS: Pulse 64, blood pressure 126/63, temperature 98.2. NECK: Neck veins appear prominent as far as I can see. CHEST: Scattered crackles. EXTREMITIES: Trace edema. NEURO: Weak. LABORATORY DATA: Chemistries show increasing creatinine of 2.82, BUN of 82, and sodium 133. ASSESSMENT 1. Fluid overload. 2. Acute tubular necrosis, possibly from aspiration. 3. Satisfactory potassium and serum CO2. PLAN: Increase Lasix to 80 mg b.i.d.. A.m. chemistries. We will follow along. Job#: [id number] LINNETTE
[2018-01-15] MEDS: PIPERACILLIN/TAZO 2.25 GM 50 ML IV SCH ×2 (14:30→21:11)
[2018-01-15] MEDS: TRAMADOL HCL 50 MG TAB PO PRN ×2 (16:06→21:11)
[2018-01-15] MEDS: WARFARIN SOD 1 MG TAB PO SCH (18:05)
[2018-01-15] MEDS: TRAZODONE HCL 50 MG TAB PO SCH (21:11)
[2018-01-16] VITALS (55 sets, daily range): BP systolic 107–134; BP diastolic 55–86
[2018-01-16] MEDS: ACETAMINOPHEN 325 MG TAB PO PRN (00:37)
[2018-01-16] MEDS: IPRATROPIUM BROMIDE 0.02% 2.5 ML NEB NEB SCH ×4 (01:25→19:22)
[2018-01-16] MEDS: PIPERACILLIN/TAZO 2.25 GM 50 ML IV SCH ×3 (05:14→22:05)
[2018-01-16] MEDS: FUROSEMIDE INJ 10 MG/ML 2 ML VIAL IV SCH ×2 (05:14→17:05)
[2018-01-16] MEDS: LEVOTHYROXINE SODIUM 75 MCG TAB PO SCH (05:14)
[2018-01-16 06:03] LABS: BASOPHILS % 0.5 % (0.0-1.0); EOSINOPHILS # (AUTO) 0.2 (0.0-0.4); EOSINOPHILS % 2.2 % (0.0-6.0); HEMATOCRIT 28.4 % (38.2-49.6); HEMOGLOBIN 8.7 g/dL (14.0-18.0); LYMPHOCYTES # (AUTO) 1.1 (1.0-3.2); MEAN CORPUSCULAR HEMOGLOBIN 27.2 pg (28-32); MEAN CORPUSCULAR HGB CONC 30.6 g/dL (31-35); MEAN CORPUSCULAR VOLUME 88.8 fL (81-99); MONOCYTES # (AUTO) 1.1 (0.2-0.8); MONOCYTES % 12.6 % (4.4-11.3); NEUTROPHILS # (AUTO) 6.4 (2.1-6.9); NEUTROPHILS % 72.2 % (38.7-80.0); PLATELET COUNT 223 x10e3/uL (140-360); RED CELL DISTRIBUTION WIDTH 16.9 % (11.7-14.4)
[2018-01-16 06:36] LABS: ALBUMIN 2.4 g/dL (3.5-5.0); ALBUMIN/GLOBULIN RATIO 0.7 (0.8-2.0); CALCIUM 7.9 mg/dL (8.4-10.2); CREATININE, SERUM 2.84 mg/dL (0.72-1.25)
--- NOTE | 2018-01-16 06:38 | Diagnostic Imaging Report ---
CHEST SINGLE (PORTABLE), 01/16/2018 7:00 AM Technique: CHEST SINGLE (PORTABLE) Comparison: 01/13/2018 Clinical history: Shortness of breath Findings: See Impression Impression: 1. Stable enlarged cardiomediastinal silhouette status post sternotomy and transcatheter aortic valve implantation. 2. Persistent diffuse opacities, favor edema, bibasilar atelectasis and small left greater than right pleural effusions. Signed by: Dr Nayla Hobson MD on 01/16/2018 6:34 AM
[2018-01-16] MEDS: BUDESONIDE 0.5MG/2 ML NEB INH SCH ×2 (07:10→19:22)
[2018-01-16] MEDS: INSULIN LISPRO 100 UNIT/1 ML 3ML VIAL SQ SCH ×4 (07:30→20:10)
[2018-01-16] MEDS: PANTOPRAZOLE SOD 40 MG TABEC PO SCH (08:26)
[2018-01-16] MEDS: MUPIROCIN 2% OINT 22 GM TUBE TOP SCH (08:30)
[2018-01-16] MEDS: AMIODARONE HCL 200 MG TAB PO SCH (08:30)
[2018-01-16] MEDS: CARVEDILOL 3.125 MG TAB PO SCH ×2 (08:30→17:05)
[2018-01-16] MEDS: HYDRALAZINE HCL 25 MG TAB PO SCH ×3 (08:57→20:10)
[2018-01-16] MEDS: TRAMADOL HCL 50 MG TAB PO PRN (13:02)
[2018-01-16] MEDS ORDERED: WARFARIN SOD 1 MG TAB PO SCH (17:00)
[2018-01-16] MEDS: TRAZODONE HCL 50 MG TAB PO SCH (20:10)
[2018-01-17] VITALS (49 sets, daily range): BP systolic 106–133; BP diastolic 53–98
[2018-01-17] MEDS: TRAMADOL HCL 50 MG TAB PO PRN ×2 (00:43→08:40)
[2018-01-17] MEDS: IPRATROPIUM BROMIDE 0.02% 2.5 ML NEB NEB SCH ×4 (01:25→19:40)
[2018-01-17] MEDS: PIPERACILLIN/TAZO 2.25 GM 50 ML IV SCH ×3 (05:21→21:00)
[2018-01-17] MEDS: ACETAMINOPHEN 325 MG TAB PO PRN (05:21)
[2018-01-17] MEDS: LEVOTHYROXINE SODIUM 75 MCG TAB PO SCH (05:21)
[2018-01-17] MEDS: FUROSEMIDE INJ 10 MG/ML 2 ML VIAL IV SCH (05:21)
[2018-01-17 06:01] LABS: INR 1.9; PROTHROMBIN TIME 20.5 seconds (11.9-14.5)
[2018-01-17 06:12] LABS: ANION GAP 13.1 mmol/L (8-16); CALCIUM 8.1 mg/dL (8.4-10.2); CREATININE, SERUM 2.69 mg/dL (0.72-1.25); POTASSIUM 4.1 mmol/L (3.5-5.1)
[2018-01-17] MEDS: BUDESONIDE 0.5MG/2 ML NEB INH SCH ×2 (07:20→19:40)
[2018-01-17] MEDS: INSULIN LISPRO 100 UNIT/1 ML 3ML VIAL SQ SCH ×4 (07:30→20:41)
[2018-01-17] MEDS: PANTOPRAZOLE SOD 40 MG TABEC PO SCH (08:24)
[2018-01-17] MEDS: AMIODARONE HCL 200 MG TAB PO SCH (08:24)
[2018-01-17] MEDS: CARVEDILOL 3.125 MG TAB PO SCH ×2 (08:25→17:33)
[2018-01-17] MEDS: FOLIC ACID 1 MG TAB PO SCH (08:26)
[2018-01-17] MEDS ORDERED: BUMETANIDE 10 MG in SODIUM CHLORIDE 0.9% 100 ML 60 ML IV SCH (09:15)
[2018-01-17] MEDS: WARFARIN SOD 3 MG TAB PO SCH (17:33)
[2018-01-17] MEDS: FERROUS SULFATE 325 MG TAB PO SCH (17:33)
[2018-01-17] MEDS: HYDRALAZINE HCL 25 MG TAB PO SCH (17:33)
[2018-01-17] MEDS: TRAZODONE HCL 50 MG TAB PO SCH (20:41)
[2018-01-17] MEDS: BUMETANIDE 10 MG in SODIUM CHLORIDE 0.9% 100 ML 60 ML IV SCH (20:41)
[2018-01-18] VITALS (46 sets, daily range): BP systolic 114–138; BP diastolic 56–109
[2018-01-18] MEDS: IPRATROPIUM BROMIDE 0.02% 2.5 ML NEB NEB SCH ×4 (01:10→19:05)
[2018-01-18] MEDS: BUMETANIDE 10 MG in SODIUM CHLORIDE 0.9% 100 ML 60 ML IV SCH ×2 (05:05→18:21)
[2018-01-18] MEDS: LEVOTHYROXINE SODIUM 75 MCG TAB PO SCH (05:06)
[2018-01-18] MEDS: PIPERACILLIN/TAZO 2.25 GM 50 ML IV SCH ×3 (05:06→21:38)
[2018-01-18 05:45] LABS: BASOPHILS % 0.5 % (0.0-1.0); EOSINOPHILS # (AUTO) 0.2 (0.0-0.4); EOSINOPHILS % 2.9 % (0.0-6.0); HEMATOCRIT 28.2 % (38.2-49.6); HEMOGLOBIN 8.5 g/dL (14.0-18.0); LYMPHOCYTES # (AUTO) 0.9 (1.0-3.2); LYMPHOCYTES % 11.5 % (18.0-39.1); MEAN CORPUSCULAR HEMOGLOBIN 27.2 pg (28-32); MEAN CORPUSCULAR HGB CONC 30.1 g/dL (31-35); MEAN CORPUSCULAR VOLUME 90.4 fL (81-99); MONOCYTES # (AUTO) 0.8 (0.2-0.8); NEUTROPHILS # (AUTO) 5.6 (2.1-6.9); NEUTROPHILS % 73.6 % (38.7-80.0); PLATELET COUNT 223 x10e3/uL (140-360); RED BLOOD COUNT 3.12 x10e6/uL (4.3-5.7); RED CELL DISTRIBUTION WIDTH 17.1 % (11.7-14.4)
[2018-01-18 05:59] LABS: INR 1.99; PROTHROMBIN TIME 21.2 seconds (11.9-14.5)
[2018-01-18 06:09] LABS: ALBUMIN 2.3 g/dL (3.5-5.0); ALBUMIN/GLOBULIN RATIO 0.7 (0.8-2.0); ANION GAP 12.9 mmol/L (8-16); CREATININE, SERUM 2.47 mg/dL (0.72-1.25); POTASSIUM 3.9 mmol/L (3.5-5.1)
--- NOTE | 2018-01-18 06:12 | Diagnostic Imaging Report ---
EXAMINATION: CHEST SINGLE (PORTABLE) INDICATION: Congestive heart failure COMPARISON: 01/16/2018 FINDINGS: TUBES and LINES: None. LUNGS: Lungs are not well inflated. There are bibasilar atelectasis. There is perihilar interstitial opacities, consistent with interstitial edema. PLEURA: Small bilateral pleural effusions. HEART AND MEDIASTINUM: Cardiac size is severely enlarged. There are atherosclerotic calcifications within the aorta. Midline sternotomy wires are intact. BONES AND SOFT TISSUES: No acute osseous lesion. Soft tissues are unremarkable. UPPER ABDOMEN: No free air under the diaphragm. IMPRESSION: Stable, persistent cardiogenic pulmonary edema with bilateral pleural effusions. Signed by: Dr. Elias Villa M.D. on 01/18/2018 6:08 AM
[2018-01-18] MEDS: BUDESONIDE 0.5MG/2 ML NEB INH SCH ×2 (06:55→19:05)
[2018-01-18] MEDS: INSULIN LISPRO 100 UNIT/1 ML 3ML VIAL SQ SCH ×4 (07:30→21:00)
[2018-01-18] MEDS: AMIODARONE HCL 200 MG TAB PO SCH (10:30)
[2018-01-18] MEDS: HYDRALAZINE HCL 25 MG TAB PO SCH ×2 (10:30→18:26)
[2018-01-18] MEDS: FOLIC ACID 1 MG TAB PO SCH (10:30)
[2018-01-18] MEDS: PANTOPRAZOLE SOD 40 MG TABEC PO SCH (10:30)
[2018-01-18] MEDS: CARVEDILOL 3.125 MG TAB PO SCH ×2 (10:30→18:26)
[2018-01-18] MEDS: FERROUS SULFATE 325 MG TAB PO SCH ×2 (10:30→18:27)
[2018-01-18] MEDS: TRAMADOL HCL 50 MG TAB PO PRN (11:32)
[2018-01-18] MEDS: WARFARIN SOD 3 MG TAB PO SCH (18:27)
[2018-01-18] MEDS: TRAZODONE HCL 50 MG TAB PO SCH (21:38)
[2018-01-19] VITALS (33 sets, daily range): BP systolic 118–140; BP diastolic 60–79
[2018-01-19] MEDS: BUMETANIDE 10 MG in SODIUM CHLORIDE 0.9% 100 ML 60 ML IV SCH (02:26)
[2018-01-19] MEDS: IPRATROPIUM BROMIDE 0.02% 2.5 ML NEB NEB SCH ×4 (02:30→19:09)
[2018-01-19] MEDS ORDERED: LEVOTHYROXINE SODIUM 75 MCG TAB ONE (05:17)
[2018-01-19 06:07] LABS: INR 1.92; PROTHROMBIN TIME 20.6 seconds (11.9-14.5)
[2018-01-19 06:12] LABS: ANION GAP 12.7 mmol/L (8-16); CALCIUM 8.2 mg/dL (8.4-10.2); CREATININE, SERUM 2.19 mg/dL (0.72-1.25); POTASSIUM 3.7 mmol/L (3.5-5.1)
[2018-01-19] MEDS: PIPERACILLIN/TAZO 2.25 GM 50 ML IV SCH ×3 (06:25→23:00)
[2018-01-19] MEDS: LEVOTHYROXINE SODIUM 75 MCG TAB PO SCH (06:25)
[2018-01-19] MEDS: BUDESONIDE 0.5MG/2 ML NEB INH SCH ×2 (07:10→19:09)
[2018-01-19] MEDS: INSULIN LISPRO 100 UNIT/1 ML 3ML VIAL SQ SCH ×4 (07:30→21:00)
[2018-01-19] MEDS: CARVEDILOL 3.125 MG TAB PO SCH ×2 (08:39→20:16)
[2018-01-19] MEDS: HYDRALAZINE HCL 25 MG TAB PO SCH ×2 (08:39→20:15)
[2018-01-19] MEDS: FOLIC ACID 1 MG TAB PO SCH (08:39)
[2018-01-19] MEDS: PANTOPRAZOLE SOD 40 MG TABEC PO SCH (08:39)
[2018-01-19] MEDS: FERROUS SULFATE 325 MG TAB PO SCH ×2 (08:39→20:16)
[2018-01-19] MEDS: AMIODARONE HCL 200 MG TAB PO SCH (08:39)
[2018-01-19] MEDS: BUMETANIDE 1 MG TAB PO SCH ×2 (10:01→20:15)
[2018-01-19] MEDS ORDERED: WARFARIN SOD 1 MG TAB PO SCH (17:00)
[2018-01-19] MEDS ORDERED: WARFARIN SOD 3 MG TAB PO SCH ×2 (17:00)
[2018-01-19] MEDS: TRAZODONE HCL 50 MG TAB PO SCH (21:06)
[2018-01-20] VITALS (9 sets, daily range): BP systolic 101–135; BP diastolic 56–93
[2018-01-20] MEDS: IPRATROPIUM BROMIDE 0.02% 2.5 ML NEB NEB SCH ×4 (01:53→19:30)
[2018-01-20] MEDS: LEVOTHYROXINE SODIUM 75 MCG TAB PO SCH (06:53)
[2018-01-20] MEDS: PIPERACILLIN/TAZO 2.25 GM 50 ML IV SCH ×3 (06:53→21:13)
[2018-01-20] MEDS: INSULIN LISPRO 100 UNIT/1 ML 3ML VIAL SQ SCH ×4 (07:30→21:00)
[2018-01-20] MEDS: BUDESONIDE 0.5MG/2 ML NEB INH SCH ×2 (07:40→19:30)
[2018-01-20] MEDS: FERROUS SULFATE 325 MG TAB PO SCH ×2 (08:07→16:34)
[2018-01-20] MEDS: BUMETANIDE 1 MG TAB PO SCH ×2 (08:07→16:34)
[2018-01-20] MEDS: HYDRALAZINE HCL 25 MG TAB PO SCH ×2 (08:07→16:34)
[2018-01-20] MEDS: PANTOPRAZOLE SOD 40 MG TABEC PO SCH (08:07)
[2018-01-20] MEDS: AMIODARONE HCL 200 MG TAB PO SCH (08:08)
[2018-01-20] MEDS: FOLIC ACID 1 MG TAB PO SCH (08:08)
[2018-01-20] MEDS: CARVEDILOL 3.125 MG TAB PO SCH ×2 (08:08→16:35)
[2018-01-20 11:55] LABS: INR 2.34; PROTHROMBIN TIME 24.1 seconds (11.9-14.5)
[2018-01-20] MEDS: WARFARIN SOD 2.5 MG TAB PO SCH (16:37)
[2018-01-20] MEDS: WARFARIN SOD 1 MG TAB PO SCH (16:37)
[2018-01-20] MEDS: TRAMADOL HCL 50 MG TAB PO PRN (19:03)
[2018-01-20] MEDS: TRAZODONE HCL 50 MG TAB PO SCH (21:03)
[2018-01-21] VITALS (9 sets, daily range): BP systolic 117–135; BP diastolic 64–76
[2018-01-21] MEDS: IPRATROPIUM BROMIDE 0.02% 2.5 ML NEB NEB SCH ×4 (00:30→19:40)
[2018-01-21] MEDS: LEVOTHYROXINE SODIUM 75 MCG TAB PO SCH (06:40)
[2018-01-21] MEDS: PIPERACILLIN/TAZO 2.25 GM 50 ML IV SCH ×3 (06:40→21:31)
[2018-01-21] MEDS: BUDESONIDE 0.5MG/2 ML NEB INH SCH ×2 (07:25→19:40)
[2018-01-21] MEDS: INSULIN LISPRO 100 UNIT/1 ML 3ML VIAL SQ SCH ×4 (07:30→20:10)
[2018-01-21] MEDS: AMIODARONE HCL 200 MG TAB PO SCH (08:14)
[2018-01-21] MEDS: FOLIC ACID 1 MG TAB PO SCH (08:14)
[2018-01-21] MEDS: FERROUS SULFATE 325 MG TAB PO SCH ×2 (08:14→16:26)
[2018-01-21] MEDS: PANTOPRAZOLE SOD 40 MG TABEC PO SCH (08:14)
[2018-01-21] MEDS: HYDRALAZINE HCL 25 MG TAB PO SCH ×2 (08:14→16:26)
[2018-01-21] MEDS: BUMETANIDE 1 MG TAB PO SCH ×2 (08:14→16:26)
[2018-01-21] MEDS: CARVEDILOL 3.125 MG TAB PO SCH ×2 (08:15→16:26)
[2018-01-21] MEDS: WARFARIN SOD 2.5 MG TAB PO SCH (16:26)
[2018-01-21] MEDS: WARFARIN SOD 1 MG TAB PO SCH (16:26)
[2018-01-21] MEDS: TRAZODONE HCL 50 MG TAB PO SCH (20:10)
[2018-01-21] MEDS: TRAMADOL HCL 50 MG TAB PO PRN (20:11)
[2018-01-22] VITALS (7 sets, daily range): BP systolic 119–133; BP diastolic 63–74
[2018-01-22] MEDS: IPRATROPIUM BROMIDE 0.02% 2.5 ML NEB NEB SCH ×4 (00:15→19:45)
[2018-01-22] MEDS: ACETAMINOPHEN 325 MG TAB PO PRN ×2 (00:22→20:15)
[2018-01-22] MEDS: PIPERACILLIN/TAZO 2.25 GM 50 ML IV SCH (04:54)
[2018-01-22] MEDS: LEVOTHYROXINE SODIUM 75 MCG TAB PO SCH (04:54)
[2018-01-22 06:38] LABS: BASOPHILS % 0.5 % (0.0-1.0); EOSINOPHILS # (AUTO) 0.2 (0.0-0.4); EOSINOPHILS % 2.5 % (0.0-6.0); HEMATOCRIT 28.6 % (38.2-49.6); HEMOGLOBIN 8.7 g/dL (14.0-18.0); LYMPHOCYTES # (AUTO) 0.8 (1.0-3.2); LYMPHOCYTES % 10.8 % (18.0-39.1); MEAN CORPUSCULAR HEMOGLOBIN 27.3 pg (28-32); MEAN CORPUSCULAR HGB CONC 30.4 g/dL (31-35); MEAN CORPUSCULAR VOLUME 89.7 fL (81-99); MONOCYTES # (AUTO) 0.7 (0.2-0.8); MONOCYTES % 8.8 % (4.4-11.3); PLATELET COUNT 235 x10e3/uL (140-360); RED BLOOD COUNT 3.19 x10e6/uL (4.3-5.7); RED CELL DISTRIBUTION WIDTH 16.8 % (11.7-14.4)
[2018-01-22 06:42] LABS: INR 2.5; PROTHROMBIN TIME 25.4 seconds (11.9-14.5)
[2018-01-22 06:52] LABS: ALBUMIN 2.2 g/dL (3.5-5.0); ALBUMIN/GLOBULIN RATIO 0.6 (0.8-2.0); ANION GAP 11.8 mmol/L (8-16); CALCIUM 8.3 mg/dL (8.4-10.2); CREATININE, SERUM 2.34 mg/dL (0.72-1.25); POTASSIUM 3.8 mmol/L (3.5-5.1)
[2018-01-22] MEDS: BUDESONIDE 0.5MG/2 ML NEB INH SCH ×2 (07:00→19:00)
[2018-01-22] MEDS: INSULIN LISPRO 100 UNIT/1 ML 3ML VIAL SQ SCH ×4 (07:30→20:52)
[2018-01-22] MEDS: FERROUS SULFATE 325 MG TAB PO SCH ×2 (07:41→16:41)
[2018-01-22] MEDS: PANTOPRAZOLE SOD 40 MG TABEC PO SCH (07:41)
[2018-01-22] MEDS: FOLIC ACID 1 MG TAB PO SCH (08:00)
[2018-01-22] MEDS: HYDRALAZINE HCL 25 MG TAB PO SCH ×2 (08:00→16:41)
[2018-01-22] MEDS: BUMETANIDE 1 MG TAB PO SCH ×2 (08:00→16:41)
[2018-01-22] MEDS: CARVEDILOL 3.125 MG TAB PO SCH ×2 (08:00→16:41)
[2018-01-22] MEDS: AMIODARONE HCL 200 MG TAB PO SCH (08:00)
[2018-01-22] MEDS: WARFARIN SOD 2.5 MG TAB PO SCH (16:41)
[2018-01-22] MEDS: WARFARIN SOD 1 MG TAB PO SCH (16:41)
[2018-01-22] MEDS: TRAZODONE HCL 50 MG TAB PO SCH (20:36)
[2018-01-23] VITALS (11 sets, daily range): BP systolic 116–135; BP diastolic 61–84
[2018-01-23] MEDS: IPRATROPIUM BROMIDE 0.02% 2.5 ML NEB NEB SCH ×4 (00:45→19:38)
[2018-01-23 05:36] LABS: BASOPHILS # (AUTO) 0.1 (0.0-0.1); BASOPHILS % 0.5 % (0.0-1.0); EOSINOPHILS # (AUTO) 0.2 (0.0-0.4); EOSINOPHILS % 1.6 % (0.0-6.0); HEMATOCRIT 30.5 % (38.2-49.6); MEAN CORPUSCULAR HEMOGLOBIN 26.8 pg (28-32); MEAN CORPUSCULAR HGB CONC 29.5 g/dL (31-35); MEAN CORPUSCULAR VOLUME 90.8 fL (81-99); MONOCYTES # (AUTO) 0.8 (0.2-0.8); NEUTROPHILS % 79.6 % (38.7-80.0); PLATELET COUNT 246 x10e3/uL (140-360); RED BLOOD COUNT 3.36 x10e6/uL (4.3-5.7); RED CELL DISTRIBUTION WIDTH 16.9 % (11.7-14.4)
[2018-01-23 05:46] LABS: INR 2.82; PROTHROMBIN TIME 27.9 seconds (11.9-14.5)
[2018-01-23 05:54] LABS: ALBUMIN 2.4 g/dL (3.5-5.0); ALBUMIN/GLOBULIN RATIO 0.6 (0.8-2.0); ANION GAP 13.1 mmol/L (8-16); CALCIUM 8.5 mg/dL (8.4-10.2); CREATININE, SERUM 2.48 mg/dL (0.72-1.25); POTASSIUM 4.1 mmol/L (3.5-5.1)
[2018-01-23] MEDS: LEVOTHYROXINE SODIUM 75 MCG TAB PO SCH (06:04)
[2018-01-23] MEDS: BUDESONIDE 0.5MG/2 ML NEB INH SCH ×2 (07:00→19:38)
[2018-01-23] MEDS: INSULIN LISPRO 100 UNIT/1 ML 3ML VIAL SQ SCH ×4 (07:30→21:00)
[2018-01-23] MEDS: PANTOPRAZOLE SOD 40 MG TABEC PO SCH (10:03)
[2018-01-23] MEDS: HYDRALAZINE HCL 25 MG TAB PO SCH ×2 (10:03→17:29)
[2018-01-23] MEDS: FERROUS SULFATE 325 MG TAB PO SCH ×2 (10:03→16:13)
[2018-01-23] MEDS: BUMETANIDE 1 MG TAB PO SCH ×2 (10:04→16:13)
[2018-01-23] MEDS: AMIODARONE HCL 200 MG TAB PO SCH (10:04)
[2018-01-23] MEDS: FOLIC ACID 1 MG TAB PO SCH (10:05)
[2018-01-23] MEDS: CARVEDILOL 3.125 MG TAB PO SCH ×2 (10:05→17:29)
[2018-01-23] MEDS: ACETAMINOPHEN 325 MG TAB PO PRN (16:12)
[2018-01-23] MEDS: WARFARIN SOD 2.5 MG TAB PO SCH (16:13)
[2018-01-23] MEDS: WARFARIN SOD 1 MG TAB PO SCH (16:13)
[2018-01-23] MEDS: TRAZODONE HCL 50 MG TAB PO SCH (20:45)
[2018-01-24] VITALS (7 sets, daily range): BP systolic 120–139; BP diastolic 63–82
[2018-01-24] MEDS: IPRATROPIUM BROMIDE 0.02% 2.5 ML NEB NEB SCH ×4 (01:25→19:05)
[2018-01-24] MEDS: ACETAMINOPHEN 325 MG TAB PO PRN ×2 (02:35→17:51)
[2018-01-24 06:27] LABS: INR 3.32; PROTHROMBIN TIME 31.7 seconds (11.9-14.5)
[2018-01-24] MEDS: LEVOTHYROXINE SODIUM 75 MCG TAB PO SCH (06:37)
[2018-01-24] MEDS: BUDESONIDE 0.5MG/2 ML NEB INH SCH ×2 (07:00→19:05)
[2018-01-24] MEDS: INSULIN LISPRO 100 UNIT/1 ML 3ML VIAL SQ SCH ×3 (07:30→16:30)
[2018-01-24] MEDS: PANTOPRAZOLE SOD 40 MG TABEC PO SCH (07:44)
[2018-01-24] MEDS: FERROUS SULFATE 325 MG TAB PO SCH ×2 (08:11→17:50)
[2018-01-24] MEDS: AMIODARONE HCL 200 MG TAB PO SCH (08:12)
[2018-01-24] MEDS: BUMETANIDE 1 MG TAB PO SCH ×2 (08:12→17:50)
[2018-01-24] MEDS: FOLIC ACID 1 MG TAB PO SCH (08:12)
[2018-01-24] MEDS: HYDRALAZINE HCL 25 MG TAB PO SCH ×2 (08:19→17:52)
[2018-01-24] MEDS: CARVEDILOL 3.125 MG TAB PO SCH ×2 (08:19→17:52)
--- NOTE | 2018-01-24 15:07 | Diagnostic Imaging Report ---
PROCEDURE: X-RAY CHEST, TWO VIEWS COMPARISON: 01/18/2018. INDICATIONS: SHORTNESS OF BREATH FINDINGS: The lung volumes remain low. Worsening interstitial opacities. Small bilateral pleural effusions. 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 Stable cardiomegaly. No acute osseous abnormality. CONCLUSION: Worsening pulmonary edema. Dictated by: Roger Lambert M.D. on 01/24/2018 at 11:24 Electronically approved by: Roger Lambert M.D. on 01/24/2018 at 11:24
[2018-01-24] MEDS: TRAZODONE HCL 50 MG TAB PO SCH (20:20)
== END 2018-01-24 22:40 | DRG 564 ==
LOC: ER 16:10 → ERHOLD 18:29 → MED/SURG3 19:06 → OBSVTOIN 01-09 16:44 → ICU 01-14 01:00 → IMCU 01-19 16:30
PROVIDERS: ADMIT Internal Medicine; ATTEND Internal Medicine
PROC: 5A09457 Assistance with Respiratory Ventilation, 24-96 Consecutive Hours, Continuous Positive Airway Pressure (ICD-10-PCS; principal; 2018-01-14)
DX: M84.472K Pathological fracture, left ankle, subsequent encounter for fracture with nonunion (principal); I50.23 Acute on chronic systolic (congestive) heart failure; N17.0 Acute kidney failure with tubular necrosis; J18.9 Pneumonia, unspecified organism; I13.0 Hypertensive heart and chronic kidney disease with heart failure and stage 1 through stage 4 chronic kidney disease, or unspecified chronic kidney disease; N17.9 Acute kidney failure, unspecified; J96.10 Chronic respiratory failure, unspecified whether with hypoxia or hypercapnia; S40.211A Abrasion of right shoulder, initial encounter; S80.811A Abrasion, right lower leg, initial encounter; S90.511A Abrasion, right ankle, initial encounter; Z79.01 Long term (current) use of anticoagulants; D29.1 Benign neoplasm of prostate; I25.10 Atherosclerotic heart disease of native coronary artery without angina pectoris; W01.0XXA Fall on same level from slipping, tripping and stumbling without subsequent striking against object, initial encounter; Z95.1 Presence of aortocoronary bypass graft; Y92.019 Unspecified place in single-family (private) house as the place of occurrence of the external cause; I48.2 Chronic atrial fibrillation; Y93.01 Activity, walking, marching and hiking; N18.3 Chronic kidney disease, stage 3 (moderate); Z95.2 Presence of prosthetic heart valve; M17.12 Unilateral primary osteoarthritis, left knee; E78.5 Hyperlipidemia, unspecified; D64.9 Anemia, unspecified; E11.22 Type 2 diabetes mellitus with diabetic chronic kidney disease; Z79.84 Long term (current) use of oral hypoglycemic drugs; R55 Syncope and collapse; E03.9 Hypothyroidism, unspecified; M21.172 Varus deformity, not elsewhere classified, left ankle; I27.20 Pulmonary hypertension, unspecified; R53.81 Other malaise; L89.312 Pressure ulcer of right buttock, stage 2
CPT/HCPCS: 36415; 36600; 70450; 71045; 71046; 76604; 76770; 80048; 80053; 81001; 82270; 82550; 82553; 82570; 82607; 82728; 82805; 82948; 83036; 83540; 83605; 83735; 83880; 84100; 84156; 84443; 84466; 84484; 85025; 85610; 85730; 87040; 87070; 87086; 87186; 87205; 93005; 93306; 93880; 93925; 94640; 94660; 96367; 96372; 96374; 96376; 97139; 99284; G0378; J1756; J1940; J2270; J2405; J2543; J7030